=== PATIENT | male | born 1950 | race Caucasian/White ===

== ENCOUNTER 2021-12-06 07:48 | Outpatient (RCR) | payer MEDICARE, OTHER, SELFPAY ==
[2021-12-06] MEDS: diphenhydrAMINE HCl CAP 25 MG CAPSULE PO (14:43)
[2021-12-06] MEDS: ACETAMINOPHEN 325 MG TABLET 650 MG PO (14:43)
[2021-12-06] MEDS: FAMOTIDINE 20 MG TABLET PO (14:43)
[2021-12-06 14:45] VITALS: BP 148/80; PULSE 68; RESP 20; TEMP 36.1; O2SAT 98
[2021-12-06 15:48] VITALS: BP 138/67
== END 2021-12-06 17:00 ==
LOC: AMCINF 07:48
PROVIDERS: PCP Family Medicine Sports Medicine; Visit Provider Internal Medicine Hematology & Oncology
DX: U07.1 COVID-19 (principal); I10 Essential (primary) hypertension
CPT/HCPCS: A9270; M0243; Q0244